=== PATIENT | male | born 1985 | race African-American/Black ===

== ENCOUNTER 2022-07-05 18:28 | Emergency (ER) | payer MEDICAID, OTHER ==
[~2022-07-05] VITALS: Ht 193 cm; Wt 100.0 kg
[2022-07-05 19:00] VITALS: BP 134/94
[2022-07-05] MEDS ORDERED: DOCU50CA11 MT (20:54)
[2022-07-05] MEDS ORDERED: HYDR30CR80 TP (20:54)
== END 2022-07-05 21:10 | disposition home or self-care (01) ==
LOC: ER 18:28
DX: K64.4 Residual hemorrhoidal skin tags (principal)
CPT/HCPCS: 99282

== ENCOUNTER 2023-12-07 09:17 | Emergency (ER) | payer MEDICAID, OTHER ==
[~2023-12-07] VITALS: Ht 193 cm; Wt 106.8 kg
[~2023-12-07 09:17] MED LIST: DOCU50CA11 MT; HYDR30CR80 TP
[2023-12-07 09:37] VITALS: O2SAT 100
[2023-12-07] MEDS: KETOROLAC 60MG/2ML VIAL IM ONE (11:15)
[2023-12-07] MEDS ORDERED: IBUP-2029 MT (11:45)
[2023-12-07 12:19] VITALS: BP 136/74; PULSE 71; RESP 18; TEMP 98.1
== END 2023-12-07 14:07 | disposition home or self-care (01) ==
LOC: ER 09:17
DX: M79.641 Pain in right hand (principal)
CPT/HCPCS: 29125; 73130; 99283; J1885

== ENCOUNTER 2024-03-14 15:28 | Emergency (ER) | payer MEDICAID, OTHER ==
[~2024-03-14] VITALS: Ht 182.9 cm; Wt 104.0 kg
[~2024-03-14 15:28] MED LIST changes: +IBUP-2029 MT
[2024-03-14 15:43] VITALS: BP 135/86; RESP 20; TEMP 98.3; O2SAT 98
[2024-03-14 15:57] VITALS: PULSE 100
[2024-03-15] MEDS ORDERED: CEPH500C2 MT (07:22)
[2024-03-15] MEDS ORDERED: SULF1TAB48 MT (07:22)
[2024-03-15] MEDS ORDERED: NAPR-681 MT (07:22)
== END 2024-03-14 21:22 | disposition left against medical advice (07) ==
LOC: ER 15:28
DX: M79.601 Pain in right arm (principal); Z53.21 Procedure and treatment not carried out due to patient leaving prior to being seen by health care provider

== ENCOUNTER 2024-03-15 05:35 | Emergency (ER) | payer OTHER ==
[~2024-03-15] VITALS: Ht 190.5 cm; Wt 100.0 kg
[2024-03-15 05:41] VITALS: PULSE 74
[2024-03-15 06:06] VITALS: BP 117/76; RESP 18; TEMP 98.4; O2SAT 98
[2024-03-15] MEDS ORDERED: NAPR-681 MT (07:22)
[2024-03-15] MEDS ORDERED: SULF1TAB48 MT (07:22)
[2024-03-15] MEDS ORDERED: CEPH500C2 MT (07:22)
== END 2024-03-15 07:45 | disposition home or self-care (01) ==
LOC: ER 06:14
DX: L03.111 Cellulitis of right axilla (principal); L02.411 Cutaneous abscess of right axilla
CPT/HCPCS: 99283